=== PATIENT | female | born 1995 | race African-American/Black ===

== ENCOUNTER → 2017-08-27 | Outpatient (CLI) | payer OTHER ==
--- NOTE | 2017-08-27 10:49 | RADIOLOGY REPORT (SQ) ---
EXAM DESCRIPTION: TIB FIB BILAT 2 VIEWS COMPLETED DATE/TIME: 08/27/2017 10:40 am REASON FOR STUDY: BILAT TIBIA FX (M84.362A,M84.361A) M84.361A STRESS FRACTURE, RIGHT TIBIA, INITIAL ENCOUNTER FOR M84.362A STRESS FRACTURE, LEFT TIBIA, INITIAL ENCOUNTER FOR COMPARISON: None. NUMBER OF VIEWS: Two views. TECHNIQUE: Two radiographic images acquired of the right and left tibia and fibula to include the kn ee and ankle in at least one projection. LIMITATIONS: None. FINDINGS: MINERALIZATION: Normal. BONES: No acute fracture or dislocation. No worrisome bone lesions. SOFT TISSUES: No obvious swelling or foreign body. OTHER: No other significant finding. IMPRESSION: NEGATIVE STUDY OF THE RIGHT AND LEFT TIBIA AND FIBULA. NO RADIOGRAPHIC EVIDENCE OF ACUTE INJURY. TECHNICAL DOCUMENTATION: JOB ID: [id number] [employer]- All Rights Reserved
== END ==
LOC: RAD 10:09
DX: M84.361A Stress fracture, right tibia, initial encounter for fracture (principal); M84.362A Stress fracture, left tibia, initial encounter for fracture